=== PATIENT | female | born 1970 | race Caucasian/White ===

== ENCOUNTER → 2017-06-11 | Outpatient (CLI) | payer OTHER | LOC: CIMAGING 15:17 | PROVIDERS: ATTEND Nurse Practitioner | DX: R10.84 Generalized abdominal pain (principal); R19.4 Change in bowel habit | CPT/HCPCS: 74000-PO ==

== ENCOUNTER → 2017-06-28 | Outpatient (CLI) | payer OTHER | LOC: CIMAGING 15:11 | DX: R93.5 Abnormal findings on diagnostic imaging of other abdominal regions, including retroperitoneum (principal) | CPT/HCPCS: 74018-PO ==